=== PATIENT | female | born 1935 | race Caucasian/White ===

== ENCOUNTER 2022-10-12 09:03 | Observation (INO) | payer MEDICARE, BC ==
[2022-10-12] MEDS: Sodium Chloride 0.9% 500 ML IV SCH (10:43)
[2022-10-12 10:53] LABS: PTT,PARTIAL THROMBOPLSTIN TIME 22.3 SEC (20.0-30.0)
[2022-10-12] MEDS ORDERED: Ondansetron 4 MG Tab.DIS PO PRN (13:20)
[2022-10-12] MEDS ORDERED: Ondansetron 4 MG/2 ML SDV IV PRN (13:20)
[2022-10-12] MEDS ORDERED: Acetaminophen 325 MG Tab PO PRN (13:20)
[2022-10-12] MEDS: Metoprolol Tartrate 5 MG/5 ML SDV IVPUSH ONE ×2 (13:43→19:59)
[2022-10-12] MEDS: Enoxaparin 30 MG/0.3 ML Syringe SUBCUT SCH (19:19)
[2022-10-13] MEDS: Metoprolol Succinate 25 MG Tab.ER PO SCH (08:43)
[2022-10-13] MEDS: Aspirin 81 MG Tab.EC PO SCH (08:43)
[2022-10-13] MEDS: Furosemide 40 MG Tab **PTOM PO SCH (08:44)
[2022-10-13] MEDS: METOPROLOL SUCCINATE 50 MG PO SCH (08:45)
[2022-10-13] MEDS: POTASSIUM CHLORIDE 20 MEQ PO SCH (08:45)
[2022-10-13] MEDS: SERTRALINE HCL 50 MG PO SCH (08:46)
== END 2022-10-13 13:36 | disposition home or self-care (01) ==
LOC: CC.ED 09:03 → CC.MS 10:57 → UNDOADMOB 10:57 → CC.MS 11:04
PROVIDERS: ADMIT Nurse Practitioner Family; ATTEND Nurse Practitioner Family
DX: R40.4 Transient alteration of awareness (principal); I48.91 Unspecified atrial fibrillation; G45.9 Transient cerebral ischemic attack, unspecified; R90.82 White matter disease, unspecified; Z79.899 Other long term (current) drug therapy; Z79.84 Long term (current) use of oral hypoglycemic drugs; Z20.822 Contact with and (suspected) exposure to COVID-19
CPT/HCPCS: 36415; 70450; 71045; 80053; 81001; 83605; 84484; 85025; 85610; 85730; 86140; 87804; 93005; 93010; 96372; 96374; 96376; 97161-GP; 99223; 99238; 99285; A9270-GY; G0378; J1650; J3490; J7040; U0002

== ENCOUNTER 2024-10-22 13:07 | Emergency (ER) | payer MEDICARE, BC ==
[2024-10-22 13:45] LABS: BASOPHILS ABSOLUTE AUTO 0.05 10^3/uL (0.00-0.50); BASOPHILS PERCENT AUTO 0.7 % (0-1); EOSINOPHILS ABSOLUTE AUTO 0.13 10^3/uL (0.00-1.50); EOSINOPHILS PERCENT AUTO 1.8 % (0-6); HEMATOCRIT 46.2 % (37.0-47.0); HEMOGLOBIN 15.2 g/dL (12.0-16.0); IMMATURE GRAN ABSOLUTE AUTO 0.02 10^3/uL (0.00-0.49); IMMATURE GRAN PERCENT AUTO 0.3 % (0.0-4.9); LYMPHOCYTES PERCENT AUTO 22.6 % (24-44); MEAN CORPUSCULAR HEMOGLOBIN 32.6 pg (27.0-32.0); MEAN CORPUSCULAR HGB CONC 32.9 g/dL (32.0-36.0); MEAN CORPUSCULAR VOLUME 99.1 fL (83.0-97.0); MONOCYTES ABSOLUTE AUTO 0.62 10^3/uL (0.00-1.50); MONOCYTES PERCENT AUTO 8.8 % (0-10); NEUTROPHILS ABSOLUTE AUTO 4.66 x10^3/uL (1.80-8.00); NEUTROPHILS PERCENT AUTO 65.8 % (41-71); PLATELET COUNT,PLT 190 10^3/uL (150-400); RED BLOOD CELL COUNT 4.66 x10^6/uL (4.00-5.50); WHITE BLOOD CELL COUNT,WBC 7.1 10^3/uL (4.0-11.0)
[2024-10-22] MEDS: Ondansetron 4 MG/2 ML SDV IVPUSH PRN (13:55)
[2024-10-22 14:01] LABS: ALANINE AMINOTRANSFERASE,ALT 16 U/L (12-78); ALKALINE PHOSPHATASE 137 U/L (46-116); ASPARTATE AMNIOTRANSFERASE,AST 22 U/L (15-37); BILIRUBIN TOTAL 0.8 mg/dL (0.0-1.0); BLOOD UREA NITROGEN,BUN 15 mg/dL (7-18); CALCIUM 9.1 mg/dL (8.4-10.1); CARBON DIOXIDE,CO2 27 mmol/L (21-32); CHLORIDE,CL 105 mEq/L (98-106); CREATININE 1.3 mg/dL (0.6-1.0); GLUCOSE RANDOM 129 mg/dL (75-99); MAGNESIUM 2.1 mg/dL (1.8-2.4); POTASSIUM,K 4.3 mEq/L (3.5-5.0); PROTEIN TOTAL,TP 6.9 g/dL (6.4-8.2); SODIUM,NA 143 mEq/L (136-145)
[2024-10-22 14:06] LABS: ESTIMATED GFR 40 mL/min (>=60)
[2024-10-22 14:11] LABS: APPEARANCE,URINE SLIGHTLY CLOUDY (CLEAR); BILIRUBIN,URINE NEGATIVE (NEGATIVE); COLOR,URINE YELLOW (YELLOW); GLUCOSE,URINE NEGATIVE (NEGATIVE); KETONES,URINE NEGATIVE (NEGATIVE); LEUKOCYTE ESTERASE,URINE TRACE (NEGATIVE); OCCULT BLOOD,URINE LARGE (NEGATIVE); PROTEIN,URINE NEGATIVE (NEGATIVE); UROBILINOGEN,URINE 0.2 EU/dL (0.2-1.0)
[2024-10-22 14:13] LABS: BACTERIA,URINE OCCASIONAL /HPF (NOT SEEN); EPITHELIAL CELLS,URINE MODERATE /HPF (NOT SEEN); MUCUS,URINE FEW /HPF (NOT SEEN); NITRITE,URINE NEGATIVE (NEGATIVE); WBC,URINE 0-5 /HPF (0-5)
[2024-10-22 14:14] LABS: AMPHETAMINES,URINE NEGATIVE (NEGATIVE); BARBITURATES,URINE NEGATIVE (NEGATIVE); BENZODIAZEPINE,URINE NEGATIVE (NEGATIVE); MDMA (ECSTASY), URINE NEGATIVE (NEGATIVE); METHADONE,URINE NEGATIVE (NEGATIVE); METHAMPHETAMINES,URINE NEGATIVE (NEGATIVE); OPIATES,URINE NEGATIVE (NEGATIVE); OXYCODONE,URINE NEGATIVE (NEGATIVE); PHENCYCLIDINE,URINE NEGATIVE (NEGATIVE); TCA,URINE NEGATIVE (NEGATIVE)
== END 2024-10-22 14:55 | disposition home or self-care (01) ==
LOC: CC.ED 13:07
DX: G45.9 Transient cerebral ischemic attack, unspecified (principal); I10 Essential (primary) hypertension; I25.10 Atherosclerotic heart disease of native coronary artery without angina pectoris; E78.00 Pure hypercholesterolemia, unspecified; Z79.82 Long term (current) use of aspirin; Z79.899 Other long term (current) drug therapy
CPT/HCPCS: 36415; 70450; 71045; 80053; 80305-QW; 81001; 83605; 83735; 84484; 85025; 85730; 87040; 87428-QW; 96374; 99284-25; J2405